=== PATIENT | male | born 1935 | race Caucasian/White ===

== ENCOUNTER 2016-03-05 15:47 | Inpatient (IN) | payer MEDICARE ==
[~2016-03-05] VITALS: Ht 185.4 cm; Wt 90.5 kg
--- NOTE | 2016-03-05 17:15 | NUR ---
Patient referral from [facility] in [place] for increased confusion, aggressive beahavior toward staff, and wandering...patient behaviors have worsen per staff. Arrived via their transportations, ambulated onto unit with his walker. Alert and able to verbalized name and , patient thinks he is at a MD appointment. Calm and cooperative, but refuses to eat dinner. Orientated to unit. Verbal consent and code word obtained per patient son Thom Chambers (POA).
[2016-03-05 18:20] VITALS: BP 149/92
[2016-03-05 19:05] LABS: BASOPHILS 0.3 % (0.0-2.0); EOSINOPHILS 2.3 % (0-7); HEMATOCRIT 40.8 % (42.0-54.0); HEMOGLOBIN 13.5 g/dL (13.5-17.5); IMMATURE GRANULOCYTES 0.2 % (0-5); LYMPHOCYTES 20.6 % (15-50); MCH 30.4 pg (26.0-34.0); MCHC 33.1 g/dL (31.0-37.0); MCV 91.9 fL (80.0-100.0); MEAN PLATELET VOLUME 9.4 fL (7.4-10.4); MONOCYTES 10.3 % (2-11); NEUTROPHILS 66.3 % (40-80); PLATELET COUNT 150 10x3/uL (130-400); RBC 4.44 10x6/uL (4.20-6.10); RDW 12.8 % (11.5-14.5); WBC 6.5 10x3/uL (4.8-10.8)
[2016-03-05 19:31] LABS: ALBUMIN 3.7 g/dL (3.4-5.0); ANION GAP 14.2 mmol/L (8-16); BILIRUBIN - TOTAL 0.52 mg/dL (0.2-1.3); CARBON DIOXIDE 23.9 mmol/L (21.0-32.0); CHOL - HDL RATIO 2.9 ratio (2.3-4.9); CREATININE - SERUM 1.3 mg/dL (0.6-1.3); LDL-HDL RATIO 1.6 ratio (1.5-3.5); POTASSIUM - SERUM 4.1 mmol/L (3.5-5.1); PROTEIN - SERUM 6.3 g/dL (6.4-8.2); THYROID STIMULATING HORMONE 3.78 uIU/mL (0.36-3.74)
[2016-03-05 19:45] LABS: HEMOGLOBIN A1C 6.3 % (4.8-6.0)
[2016-03-05] MEDS ORDERED: VITAMIN B-12500 MC1 PO (19:45)
[2016-03-05] MEDS ORDERED: PLAVIX75 MG PO (19:46)
[2016-03-05] MEDS ORDERED: BAYER CHEWABLE81 MG PO (19:46)
[2016-03-05] MEDS ORDERED: ARICEPT10 MG PO (19:47)
[2016-03-05] MEDS ORDERED: FLOMAX0.4 MG PO (19:48)
[2016-03-05] MEDS ORDERED: ISOSORBIDE MONO30 M1 PO (19:49)
[2016-03-05] MEDS ORDERED: MOBIC7.5 MG PO (19:50)
[2016-03-05] MEDS ORDERED: NAMENDA XR7 MG PO (19:51)
[2016-03-05] MEDS ORDERED: TRAZODONE HCL50 MG PO (19:51)
[2016-03-05] MEDS ORDERED: REMERON15 MG PO (19:52)
[2016-03-05] MEDS ORDERED: ACETAMINOPHEN325 MG PO (19:53)
[2016-03-05] MEDS ORDERED: ATIVAN0.5 MG PO (19:55)
[2016-03-05 20:35] VITALS: BP 135/78
--- NOTE | 2016-03-05 22:57 | NUR ---
RECEIVED IN DAYROOM. SETTING IN CHAIR. RESTLESS. VERY CONFUSED. ORIENTED TO SELF ONLY. REDIRECT AND REORIENT. NO PM MEDS GIVEN AT THIS TIME. IN BEDROOM WITH EYES OPEN AT THIS TIME. RESTLESSNESS AND ANXIETY CONTINUES. CONTINUE PLAN OF CARE
[2016-03-06 04:21] VITALS: BP 135/78; BMI 27.0
--- NOTE | 2016-03-06 07:45 | NUR ---
Did remove patients bandages and assessed areas and rewrapped. Patient does have a stasis ulcer to left anterior ankle area, has crusted area all over feet and legs upto knees. Patient does have a couple scabbed areas to right leg. applied mepilex & kerlix. Patient is not able to provide much information about himself or his health history.
[2016-03-06 08:00] VITALS: BP 127/54
[2016-03-06 14:14] VITALS: Ht 185.4 cm; Wt 90.5 kg
[2016-03-06 20:22] VITALS: BP 109/59
--- NOTE | 2016-03-06 23:45 | NUR ---
RECEIVED IN HALLWAY SITTING IN CHAIR. ORIENTED TO SELF ONLY, VERY CONFUSED AND RESTLESS. CALM AND COOPERATIVE WITH CARE. COMPLIANT WITH TAKING PM MEDS. ASSESSMENT COMPLETED PER FLOW SHEET. CONTINUE POC.
[2016-03-07 06:14] LABS: RAPID PLASMA REAGIN Non Reactive (Non Reactive)
[2016-03-07 08:10] VITALS: BP 115/59
[2016-03-07 09:19] LABS: FOLATE (FOLIC ACID) - SERUM 7.4 ng/mL (>3.0)
--- NOTE | 2016-03-07 12:32 | NUR ---
B) Patient is awake and alert, he is flat in affect. He says he doesn't feel well, but he says "It's just me" He is confused, he doesn't know where he is located and he wanders. He is [place]. It is difficult to communicate at times, unsure if he is able comprehend or if he is not hearing well. Patient ambulates independently with a walker, he is slow in gait as he does have a left edematous leg and he does have bilateral bandages to legs. He says he had cellulitis at one time. Unsure if he is a good historian. I) Provide prescribed meds and redirect as needed. R) Patient is compliant with medication and he has redirected today and has not been exit seeking. P) Continue plan of care.
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
[2016-03-07 19:30] VITALS: BP 132/58
--- NOTE | 2016-03-07 23:59 | NUR ---
b) Recieved ambulating in the day room with a walker, alert and oriented to self, calm and cooperative with staff, I) Administered perscribed medications and redirected as needed, R) Medication compliant, resting now in bed with eyes closed, P) Continue plan of care, continue to monitor.
--- NOTE | 2016-03-08 08:00 | NUR ---
B) Patient is awake and alert, he is oriented to his name only, he is confused, ambulating in hallway, going into other patient rooms and he has to be redirected. He did see industrial maintenance technician go in his room to increase the heat, but patient became frustrated and he wanted to go to his room, had to redirect. I) Provide prescribed meds. R) Patient is compliant with meds. P) Continue plan of care.
[2016-03-08 08:11] VITALS: BP 108/53
--- NOTE | 2016-03-08 11:10 | NUR ---
OUND CARE NURSE HERE TO APPLY NEW FREDDY BOOT BANDAGES ON PATIENT'S BILATERAL LOWER LEGS. PATIENT TOLERATED WELL.
--- NOTE | 2016-03-08 13:10 | NUR ---
WOUND CARE CONSULT: NOTED SEVERAL STASIS ULCERS ON BILATERAL LOWER EXTREMITIES. CURRENT TREATMENT PT RECEIVING AT [facility] WAS UNNA BOOTS APPLIED WEEKLY. UNNA BOOTS APPLIED PER ORDERS. WILL CONTINUE TO MONITOR.
--- NOTE | 2016-03-08 13:43 | NUR ---
Patient getting irritated and he is cursing, trying to elope and when redirected he says "This is Bulls--". Haldol 2 mg po give now.
--- NOTE | 2016-03-08 14:27 | NUR ---
SW MET WITH PT'S CHRISTA- TO DISCUSS RECENT BEHAVIORS AND DISCHARGE PLANNING.
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
--- NOTE | 2016-03-08 16:00 | NUR ---
PATIENT CONTINUES TO BE RESTLESS, ANXIOUS, UNREDIRECTABLE. HALDOL 2MG IM ADMINISTERED WITHOUTH DIFFICULTY PER ORDERS.
[2016-03-08 19:30] VITALS: BP 129/80
--- NOTE | 2016-03-08 21:17 | NUR ---
B) Patient is calmer this pm, staff had to redirect multiple times to get him to go to bed, he kept making circles in the room, saying he is looking for his . Staff was able to assist him to bed. He is confused, oriented to self only. I) Provide prescribed meds and redirect as needed. R) Patient is compliant with meds. P) Continue plan of care.
[2016-03-09 09:46] VITALS: BP 115/65
--- NOTE | 2016-03-09 14:29 | NUR ---
RECEIVED THIS AM SITTING IN CHAIR AT NURSES STATION.ORIENTED TO SELF ONLY.IS AMBULATORY WITH WALKER.CALM AND COOPERATIVE.COMPLIANT WITH MEDS.MEDS CRUSHED AND GIVEN IN APPLESAUCE.WILL CONTINUE WITH PLAN OF CARE,MONITOR FOR CHANGES AND SAFETY.HALDOL IM GIVEN THIS AFTERNOON FOR ANXIETY AND TRYING TO LEAVE.
--- NOTE | 2016-03-09 16:05 | NUR ---
PATIENT PACING AND CHECKING DOORS. BECOMING MORE ANXIOUS AND WILL NOT FOLLOW VERBAL REDIRECTION. QUESTIONING WHAT STAFF TELLS HIM. HALDOL 2MG IM ADMINSITERED PER ORDERS.
--- NOTE | 2016-03-09 18:39 | PN ---
PATIENT:KEYSHAWN BUSTAMANTE MEDICAL RECORD: [id number] LOCATION:[facility] ADMISSION DATE: 03/05/16 PROGRESS NOTE DATE OF SERVICE: 03/08/2016 SUBJECTIVE: No new complaint. OBJECTIVE: The patient continues to wonder about the unit. He has lost and confused much of the time, but generally cooperative. On exam, mood is euthymic, affect is pleasant. Speech is tangential and nonfocused. Content of thought exhibits delusional ideation due to profound sensorium changes. Sensorium remains clouded. The patient is oriented only to person. ASSESSMENT: No change in diagnosis. PLAN: 1. Continue all current medications. 2. Continue supportive therapy. TRANSINT:[id number] Voice Confirmation ID: [id number] DOCUMENT ID: [id number] NIK DRAPER III, MD at 1839 CC: [id number] DICTATION DATE: 03/08/16 1227 DEPUTY JUVENILE OFFICER: 03/08/16 2105 ADM IN [place] [id number] [place] [id number]
[2016-03-09 20:00] VITALS: BP 141/86
--- NOTE | 2016-03-09 22:35 | NUR ---
B) Continues to be nervous, anxious and restless but did not curse or engage in any aggression this shift thus far. Did become slightly irritable waiting in dayroom to be allowed to go back to his room for the night but was directable. Bruises on hands continue to heal. Uses walker when ambulating. Has not been exit seeking this shift. FREDDY boots remain on and intact on lower legs bilaterally, refused to shower tonight despite offer of assistance from staff and having plastic sleeves at the nursing station to cover his FREDDY boots. I) Administer medications as ordered, redirect and reorient PRN. Educate on anger management skills. R) Oriented x 1 to person only, confused, grumpy, and impatient. Compliant with medications, took same crushed in applesauce. P) Continue to monitor per plan of care.
[2016-03-10 07:41] VITALS: BP 132/69
--- NOTE | 2016-03-10 15:23 | NUR ---
ORIENTED TO PERSON ONLY. PT IS EXIT SEEKING AND DIFFICULT TO REDIRECT. PT BECOMES AGITATED WITH REDIRECTION. PT IS RESTLESS AND PACING THE UNIT WITH HIS WALKER. ANXIETY NOTED. MED COMPLIANT. ENCOURAGED PT TO EXPRESS FEELINGS AND EDUCATED ON COPING SKILLS. NO EVIDENCE OF RETAINING EDUCATION OR REDIRECTION. FALL PRECAUTIONS MAINTAINED. CONTINUE TO MONITOR AND CONTINUE WITH PLAN OF CARE.
[2016-03-10 19:30] VITALS: BP 140/83
--- NOTE | 2016-03-10 22:36 | NUR ---
B) Extremely anxious this evening trying to find a way out. Needed prompting to return to dayroom. Nervous and shaky, did not state what was bothering him. Nontalkative, staring taking short steps, unsteady, using walker with standby assist. No anger displayed. I) Administer medications as ordered, redirect and reorient PRN, provide emotional reassurance and encourage to express feelings. R) Oriented to person only, remains AWOL risk, FREDDY boots on, took pills whole tonight with water, last evening took HS medications crushed in applesauce. P) Continue with monitoring per plan of care.
[2016-03-11 07:38] VITALS: BP 106/65
--- NOTE | 2016-03-11 13:16 | PN ---
PATIENT:KEYSHAWN BUSTAMANTE MEDICAL RECORD: [id number] LOCATION:[facility] ADMISSION DATE: 03/05/16 PROGRESS NOTE DATE OF SERVICE: 03/07/2016 SUBJECTIVE: The patient's case was discussed with staff. He has no new complaint. OBJECTIVE: The patient denies intent to harm himself or others. He is quite confused. He does not recognize that he was in a shelter. He also does not remember that he is . ASSESSMENT: No change in diagnoses. PLAN: Current medicines and therapies have been reviewed and will be maintained. The patient has not been aggressive. TRANSINT:[id number] Voice Confirmation ID: [id number] DOCUMENT ID: [id number] FELICIANO SIDDIQUI MD at 1316 CC: [id number] DICTATION DATE: 03/07/16 1446 PROPERTY WORKER: 03/07/16 1717 ADM IN [facility] [address] [place] [address]
--- NOTE | 2016-03-11 16:39 | NUR ---
Oriented to self only, patient is ambulatory with walker, exit seeking was fund going through discarded breakfast trays looking for "Contracts" patient becomes agitated with redirection and argumentive. Refused shower today " if I shower I will not be able to walk again, i'll become weak." Redirect, reorient and refocus to reality as need. Unable to redirect and refocus to reality. Continue with plan of care.
--- NOTE | 2016-03-11 18:30 | NUR ---
bilateral lower extremity unna boot dressing applied per wound care nurse on 03/08/16, dressing clean, dry and intact to be changed weekly.
[2016-03-11 19:58] VITALS: BP 137/72
--- NOTE | 2016-03-11 20:43 | NUR ---
RECEIVED IN DAYROOM. SETTING IN RECLINER WITH PEERS AT HIS SIDE. SOCIALIZING. VERY CONFUSED. CALM AND COOPERATIVE WITH CARE AND ASSESSMENT. NO SIGNS OF AGGRESSION. NOT EXIT SEEKING THIS EVENING. REDIRECT AND REORIENT NEEDED. CONTINUES TO SET QUIETLY IN RECLINER. CONTINUE PLAN OF CARE
[2016-03-12 10:07] VITALS: BP 107/48
--- NOTE | 2016-03-12 10:27 | NUR ---
Nutrition Follow Up: Chart reviewed. Pt is eating 91% on a regular diet. Wt loss of 5# since admit. +BM 03/07/16. Meds noted including Vit B12. No new labs to assess. Pt with excellent po intake at this time. Rec continue current diet. RD following.
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
--- NOTE | 2016-03-12 18:42 | NUR ---
(B)RECEIVED PATIENT WALKING ON THE UNIT WITH HIS WALKER. ORIENTED TO SELF ONLY AEB "I'M HERE." POOR INSIGHT INTO THE REASON FOR HOSPITALIZATION RELATING "I'M HERE TO DO SOMETHING FOR SOMEBODY. HELP OUT DON'T KNOW ALL ABOUT IT." LABILE ONE MINUTE CAN BE CALM AND COOPERATIVE AND THE NEXT MINUTE WILL BE CURSING, AGGRESSIVE AND DELUSIONAL. (I)ADMINISTER MEDS AND MONITOR COMPLIANCE. REORIENT NEEDED. (R)MED COMPLIANT. POOR REORIENTATION DUE TO IMPAIRED ABILITY TO COMREHEND, PROCESS AND RETAIN INFORMATION. (P)CONTINUE POC AND MAINTAIN FALL PRECAUTIONS.
[2016-03-12 19:39] VITALS: BP 122/71
--- NOTE | 2016-03-12 21:08 | NUR ---
B) Patient is very confused, he keeps wandering into others rooms. He ambulates with a walker. He is polite, but he asks the same question over and over. I) Provide prescribed meds and redirect as needed. R) Patient is compliant with meds. He has not shown aggression tonight. P) Continue plan of care.
[2016-03-13 07:40] VITALS: BP 117/59
--- NOTE | 2016-03-13 13:17 | NUR ---
RECEIVED THIS AM AMB IN HALLWAY WITH WALKER.ORIENTED TO SELF ONLY.EXIT SEEKING,LOOKING FOR .ATTEMPTS TO REORIENT UNSUCCESSFUL.WILL CONTINUE WITH PLAN OF CARE ,MONITOR FOR CHANGES AND SAFETY.
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
--- NOTE | 2016-03-13 17:36 | PN ---
PATIENT:KEYSHAWN BUSTAMANTE MEDICAL RECORD: [id number] LOCATION:[facility] ADMISSION DATE: 03/05/16 PROGRESS NOTE DATE OF SERVICE: 03/12/2016 SUBJECTIVE: The patient's case was discussed with staff. He has no new complaint. OBJECTIVE: The patient denies intent to harm himself or others. He is severely impaired cognitively. He has been eating well and sleeping reasonably well, but continues to have difficulty with exit seeking and sundowning behavior. Dr. Cathy Bowen is going to him today. I anticipate he is going to score in the severe range, probably with a score on the SLUMS test of 10 or 12. TRANSINT:[id number] Voice Confirmation ID: [id number] DOCUMENT ID: [id number] FELICIANO SIDDIQUI MD at 1736 CC: [id number] DICTATION DATE: 03/12/16 1324 SALES DRIVER: 03/12/16 1841 ADM IN [facility] [address] [place] [address]
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
--- NOTE | 2016-03-13 21:24 | NUR ---
RECEIVED INDAYROOM. SETTING IN WHEELCHAIR. VERY CONFUSED. CALM AND COOPERATIVE WITH CARE AND ASSESSMENT. NO SIGNS OF AGGRESSION. ASSISTED TO BED. REDIRECT AND REORIENT NEEDED. RESTING IN BED WITH EYES CLOSED AT THIS TIME. CONTINUE PLAN OF CARE
[2016-03-14 08:23] VITALS: BP 110/67
--- NOTE | 2016-03-14 13:20 | PN ---
PATIENT:KEYSHAWN BUSTAMANTE MEDICAL RECORD: [id number] LOCATION:[facility] ADMISSION DATE: 03/05/16 PROGRESS NOTE DATE OF SERVICE: 03/13/2016 SUBJECTIVE: The patient's case was discussed with staff. He has no new complaint. OBJECTIVE: The patient is in good behavioral control with poor insight about his condition. He tolerates his medicines well. ASSESSMENT: No change in diagnoses. PLAN: Current medicines and therapies have been reviewed and will be maintained. Long-term prognosis is guarded. He does become quite confused in the evening, it is only dinner time right now, but if he does have some agitation, I do plan to increase the medication to relieve some of that agitation. TRANSINT:[id number] Voice Confirmation ID: [id number] DOCUMENT ID: [id number] FELICIANO SIDDIQUI MD at 1320 CC: [id number] DICTATION DATE: 03/13/16 1749 PROBATE LAWYER: 03/13/16 1908 ADM IN [facility] [address] [place] [address]
--- NOTE | 2016-03-14 15:04 | NUR ---
B) Patient is confused, he knows his name only, he is not aware of where he is located. He ambulates with a walker independently. He is c/o his groinal area itching and burning, he does have nystatin powder and did apply to area, will let MD be aware also. I) Provide prescribed meds and redirect as needed. R) Patient is compliant with meds and unit milieu. P) Continue plan of care.
--- NOTE | 2016-03-14 15:32 | NUR ---
B) Patient is awake and alert, he knows his name, but he is confused. he does not know where he is and he does not know why he is here. He ambulates with a walker. I) Provide prescribed meds. R) Patient is compliant with meds and unit milieu. P) Continue plan of care.
--- NOTE | 2016-03-14 16:13 | NUR ---
Family here and requests that patient be tested for a UTI, they state he gets mean when he has one, did let Michelle Solis know and Dr. Sarabia.
[2016-03-14 17:29] LABS: APPEARANCE CLEAR (CLEAR); BACTERIA FEW /hpf (NONE SEEN); BILIRUBIN NEGATIVE (NEGATIVE); COLOR YELLOW (YELLOW); EPITHELIAL CELLS 0-5 /hpf (0-5); GLUCOSE NEGATIVE (NEGATIVE); KETONE NEGATIVE (NEGATIVE); LEUKOCYTE ESTERASE NEGATIVE (NEGATIVE); MUCUS <1+ /lpf (NONE SEEN); NITRITE NEGATIVE (NEGATIVE); PROTEIN NEGATIVE (NEGATIVE); RED CELLS - URINE 0-5 /hpf (0-5); SPECIFIC GRAVITY 1.025 (1.005-1.020); UROBILINOGEN NORMAL (NORMAL); WHITE CELLS - URINE OCC /hpf (0-5)
[2016-03-14 19:30] VITALS: BP 140/75
--- NOTE | 2016-03-15 01:30 | NUR ---
B) Continues confused, anxious, restless, and wandering. Ambulates with walker. Focused on penis and testicles. States it is "sore down there." Scrotum, and groins reddened with two small blisters on right side of scrotum, Nystatin powder followed by Lotrimin cream applied over entire area. FREDDY dressings remain over both lower legs with scant villarreal colored oozing noted coming through outer layer of [place] in both dennis areas. I) Administer medications as ordered, redirect and reorient PRN. R) Oriented to person, compliant with medications, states painful soreness in perineum area somewhat relieved after powder and cream applied. P) Continue to monitor per plan of care.
[2016-03-15 08:12] VITALS: BP 134/63
--- NOTE | 2016-03-15 08:31 | NUR ---
Assessed patient's scrotum and penis, scrotum very red and inflamed from possibly scratching, right testicle has a blister, apllied topical med as ordered called Dr. Sarabia and she ordered valtrex for 7 days.
--- NOTE | 2016-03-15 09:39 | NUR ---
LATE ENTRY FROM 03/14/16 SW SPOKE WITH PT'S RAMONWILLIAM, ABOUT PT'S DISCHARGE PLANNING. MARIYA HANDED OUT RESOURCES FOR ALTERNATIVE NH PLACEMENTS. WILLIAM STATED SHE WOULD START LOOKING INTO FACILITIES TOMORROW.
--- NOTE | 2016-03-15 13:51 | NUR ---
WOUND CARE: REMOVED BILATERAL UNNA BOOTS. APPLIED NEW ONES. PT TOLERATED WELL. LEGS HAVE IMPROVED.
[2016-03-15 19:24] VITALS: BP 126/52
--- NOTE | 2016-03-15 23:34 | NUR ---
B) Recieved sitting in the day room , alert and oriented to self, social with other patients, anxious and restlss at times, I) administered perscribed medication, PRN Haldol 2 mg IM given at 1900 for anxiety, R) Medication compliant, calm and cooperative now, restless at times, P) Continue plan of care,
[2016-03-16 08:00] VITALS: BP 151/80
--- NOTE | 2016-03-16 12:27 | NUR ---
RECEIVED THIS AM AMB IN HALLWAY WITH WALKER.IS ORIENTED TO SELF.CALM AND COOPERATIVE AT PRESENT BUT CAN BECOME VERY AGGITATED AND DETERMINED AT TIMES.WILL CONTINUE WITH PLAN OF CARE,MONITOR FOR CHANGES AND SAFETY.
--- NOTE | 2016-03-16 12:54 | PN ---
PATIENT:KEYSHAWN BUSTAMANTE MEDICAL RECORD: [id number] LOCATION:[facility] ADMISSION DATE: 03/05/16 PROGRESS NOTE DATE OF SERVICE: 03/15/2016 SUBJECTIVE: The patient's case was discussed with staff. He has no new complaint. OBJECTIVE: The patient is in good behavioral control with limited insight about his condition. He tolerates his medicines well. He is very confused. He will be monitored for clinical changes. I plan to maintain these medications since he actually is a little less agitated than yesterday. TRANSINT:[id number] Voice Confirmation ID: [id number] DOCUMENT ID: [id number] FELICIANO SIDDIQUI MD at 1254 CC: [id number] DICTATION DATE: 03/15/16 1231 ORDER FILLER: 03/15/16 1730 ADM IN [place] [id number] [place] [address]
--- NOTE | 2016-03-16 12:55 | PN ---
PATIENT:KEYSHAWN BUSTAMANTE MEDICAL RECORD: [id number] LOCATION:[facility] ADMISSION DATE: 03/05/16 PROGRESS NOTE DATE OF SERVICE: 03/14/2016 SUBJECTIVE: The patient's case was discussed with staff. He has no new complaint. OBJECTIVE: The patient is in good behavioral control, but quite impaired. Yesterday afternoon, he did require additional medication because he was confused and agitated. His long-term prognosis is guarded. The treatment goals are to reduce his level of agitation, so that he can be reasonably cared for in a long-term care setting. TRANSINT:[id number] Voice Confirmation ID: [id number] DOCUMENT ID: [id number] FELICIANO SIDDIQUI MD at 1255 CC: [id number] DICTATION DATE: 03/14/16 1329 TILE LAYER: 03/14/16 1558 ADM IN [place] [id number] [place] [id number]
--- NOTE | 2016-03-16 14:00 | NUR ---
Patient's sister in law asked "When will he be discharged" She also asked "How is he doing today" Explained that yesterday pm he had to have an injection for aggression and today he is slow moving, but he is calmer. Also let her know he does not have a UTI. She was pleased to know that answer.
[2016-03-16 19:30] VITALS: BP 162/78
--- NOTE | 2016-03-17 02:44 | NUR ---
B) Recieved sitting in the day room, alert and oriented to self only, calm and cooperative, wanders at times, very confused, I) Administered perscribed medication, redirected as needed, R) Medication compliant, resting quietly now, P) Continue plan of care, continue to monitor.
[2016-03-17 08:38] VITALS: BP 98/53
--- NOTE | 2016-03-17 11:47 | NUR ---
PT ORIENTED TO PERSON ONLY. REDIRECTED NEEDED BUT NO EVIDENCE OF RETAINING. PT MADE SEXUALLY INAPPROPRIATE COMMENTS TO MED NURSE. EDUCATED ON APPROPRIATE BEHAVIOR BUT PT DID NOT UNDERSTAND. NO AGGRESSION NOTED. PT CONTINUES TO ATTEMPT TO OPEN DOORS BUT NOT BECOMING AGITATED WHEN REDIRECTED. MED COMPLIANT. FALL PRECAUTIONS MAINTAINED. WILL CONTINUE TO MONITOR AND CONTINUE WITH PLAN OF CARE.
[2016-03-17 19:30] VITALS: BP 106/70
--- NOTE | 2016-03-17 20:41 | NUR ---
RECEIVED IN DAYROOM. SETTING IN CHAIR WITH PEERS AT HIS SIDE. NOT SOCIALIZING WITH PEERS. CALM AND COOPERATIVE WITH CARE AND ASSESSMENT. ORIENTED TO SELF ONLY. NO SIGNS OF AGGRESSION. NOT EXIT SEEKING. REDIRECT AND REORIENT . CONTINUES TO SET QUIETLY IN CHAIR. CONTINUE PLAN OF CARE
[2016-03-18 11:20] VITALS: BP 114/61
--- NOTE | 2016-03-18 18:49 | NUR ---
Alert and oriented to self only, has no insight to reason for hospitalization. Reorient and redirect as need. unable to reorient due to inability to retain information, no evidence of reorientation. Continues to exit seek to doors, redirectable with no aggression. Compliant with medications. Fall precautions maintained. Continue to monitor and continue with plan of care.
--- NOTE | 2016-03-18 20:12 | NUR ---
RECEIVED IN DAYROOM. SETTING IN RECLINER WITH STAFF AND PEERS AT HIS SIDE. SOCIALIZING WITH PEERS AT TIMES. VERY CONFUSED. NO SIGNS OF AGGRESSION. NOT EXIT SEEKING AT THIS TIME. REDIRECT AND REORIENT NEEDED. CONTINUES TO REST QUIETLY IN RECLINER. CONTINUE PLAN OF CARE
[2016-03-18 20:37] VITALS: BP 124/71
--- NOTE | 2016-03-19 09:37 | NUR ---
Nutrition Follow Up: Chart reviewed. Pt is eating 78% meal avg on a Regular diet. Noted per MD note pt with L ankle stasis ulcer and scrotum is red with dried blisters. +BM 03/18/16. No new labs to assess. Meds noted. Rec continue current diet. Will send Ensure with meals to increase protein/calorie intake to promote wound healing. RD following.
[2016-03-19 14:08] VITALS: BP 183/57
--- NOTE | 2016-03-19 14:57 | PN ---
PATIENT:KEYSHAWN BUSTAMANTE MEDICAL RECORD: [id number] LOCATION:[facility] ADMISSION DATE: 03/05/16 PROGRESS NOTE DATE OF SERVICE: 03/18/2016 SUBJECTIVE: The patient's case was discussed with staff. He has no new complaint. OBJECTIVE: The patient denies intent to harm himself or others. He generally tolerates his medicines well. He has been much calmer. ASSESSMENT: No change in diagnoses. PLAN: Current medicines and therapies have been reviewed and will be maintained. Long-term prognosis is guarded. TRANSINT:[id number] Voice Confirmation ID: [id number] DOCUMENT ID: [id number] FELICIANO SIDDIQUI MD at 1457 CC: [id number] DICTATION DATE: 03/18/16 1349 CPO: 03/18/16 1442 ADM IN [address] [id number] [place] [address]
--- NOTE | 2016-03-19 15:55 | NUR ---
RECEIVED THIS AM SAUL[facility] IN [facility].ORIENTED TO SELF ONLY.COMPLIANT WITH MEDS.EXIT SEEKING.WILL CONTINUE WITH PLAN OF CARE.MONITOR FOR CHANGES AND SAFETY.NO INAPPROPRIATE SEXUAL ADVANCES OBSERVED TODAY.
[2016-03-19 19:28] VITALS: BP 128/74
--- NOTE | 2016-03-20 04:25 | NUR ---
PATIENT RECIEVED IN DAYROOM. REORIENTED TO SELF ONLY. CONFUSED AND EXIT SEEKING, PATIENT WAS REDIRECTED. CALM AND COOPERATIVE WITH MEDICATION. CONTINUE PLAN OF CARE.
[2016-03-20 07:57] VITALS: BP 115/65
--- NOTE | 2016-03-20 12:46 | PN ---
PATIENT:KEYSHAWN BUSTAMANTE MEDICAL RECORD: [id number] LOCATION:[facility] ADMISSION DATE: 03/05/16 PROGRESS NOTE DATE OF SERVICE: 03/19/2016 SUBJECTIVE: The patient's case was discussed with staff. He has no new complaint. OBJECTIVE: The patient is in good behavioral control with limited insight about his condition. He is severely impaired cognitively. ASSESSMENT: No change in diagnoses. PLAN: I anticipate the patient can be transitioned out of the hospital soon. His long-term prognosis is guarded. TRANSINT:[id number] Voice Confirmation ID: [id number] DOCUMENT ID: [id number] FELICIANO SIDDIQUI MD at 1246 CC: [id number] DICTATION DATE: 03/19/16 1524 ENVIRONMENTAL AID: 03/19/16 1557 ADM IN [address] [place] [address]
--- NOTE | 2016-03-20 14:13 | NUR ---
B.) Alert and oriented to self only, calm and cooperative with assessment. I.) Administer medications and monitor compliance. Redirect and reorient as need. Encourage group participation and monitor safety. R.) Compliant with medications, no aggression, redirect easily. No evidence of reorientation. Safety maintained. P.) Continue plan of care.
[2016-03-20 19:27] VITALS: BP 114/65
--- NOTE | 2016-03-21 00:34 | NUR ---
B) Recieved sitting in the day room, alert and oriented to self, social with peers, calm and cooperative with staff, I) Administered perscribed medications, redirected and oriented as needed, R) Medication compliant, wanders at times P) continue plan of care, continue to monitor.
[2016-03-21 07:50] VITALS: BP 116/58
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
--- NOTE | 2016-03-21 14:53 | PN ---
PATIENT:KEYSHAWN BUSTAMANTE MEDICAL RECORD: [id number] LOCATION:[facility] ADMISSION DATE: 03/05/16 PROGRESS NOTE DATE OF SERVICE: 03/20/2016 SUBJECTIVE: The patient's case was discussed with staff. He has no new complaint. OBJECTIVE: The patient is in good behavioral control with limited insight about his condition. He tolerates his medicines well. ASSESSMENT: No change in diagnoses. PLAN: Current medicines and therapies have been reviewed and will be maintained. Long-term prognosis is guarded. TRANSINT:[id number] Voice Confirmation ID: [id number] DOCUMENT ID: [id number] FELICIANO SIDDIQUI MD at 1453 CC: [id number] DICTATION DATE: 03/20/16 1307 THREAD WINDER: 03/20/16 1451 ADM IN [id number] [place] [address]
[2016-03-21 22:07] VITALS: BP 118/57
--- NOTE | 2016-03-22 03:00 | NUR ---
B) recieved sitting in the day room, alert and oriented to self, very confused, very neat and tidy, poor short term memory, not able to process information or retain information, I) Administered perscribed medications, redirected and oriented as needed, R) Medication compliant, friendly and social at times with staff, P) Continue plan of care, continue to monitor.
[2016-03-22 08:55] VITALS: BP 111/56
--- NOTE | 2016-03-22 14:03 | NUR ---
(B)RECEIVED PATIENT SITTING IN A CHAIR AT THE NURSES STATION. ORIENTED TO SELF ONLY. POOR INSIGHT INTO THE REASON FOR HOSPITALIZATION. AMBULATES ON UNIT WITH ASSIST OF A WALKER. CALM AND COOPERATIVE. (I)ADMINISTER MEDS AND MONITOR COMPLIANCE. REORIENT NEEDED. (R)MED COMPLIANT. POOR REORIENTATION DUE TO IMPAIRED ABILITY TO COMPREHEND, PROCESS AND MAINTAIN FALL PECAUTIONS. COOPERATIVE WITH UNIT MILEU. (P)CONTINUE POC AND MAINTIAN FALL PRECAUTIONS.
--- NOTE | 2016-03-22 14:49 | NUR ---
WOUND CARE; REMOVED BILATERAL UNNA BOOTS AND APPLIED NEW. PT CONTINUES TO HAVE SEVERAL STASIS ULCERS ON BILATERAL LOWER EXTREMITIES BUT THEY ARE IMPROVING. WOUND CARE WILL CONTINUE MONITORING.
--- NOTE | 2016-03-22 15:14 | NUR ---
LATE ENTRY FROM 03/21 SW MET WITH PT'S WILLIAM NAVARRO, TO DISCUSS NH PLACEMENT AND DISCHARGE PLANNING. WILLIAM VERBALIZED UNDERSTANDING.
[2016-03-22 19:30] VITALS: BP 130/63
--- NOTE | 2016-03-23 00:38 | NUR ---
Patient pleasant, neat in appearance, cooperative with medication. Calm, not exit-seeking. Abulating with walker without assistance. Not oriented to time, place or situation. Continue to monitor, continue plan of care.
[2016-03-23 09:03] VITALS: BP 106/63
--- NOTE | 2016-03-23 15:32 | NUR ---
RECEIVED THIS AM SITTING IN CHAIR IN HALLWAY AT NURSES STATION.IS ORIENTED TO SELF ONLY.EXIT SEEKING.IS CALM AND COOPERATIVE WITH STAFF.COMPLIANT WITH MEDS.AMB PER SELF WITH WALKER.WILL CONTINUE WITH PLAN OF CARE,MONITOR FOR CHANGES AND SAFETY.
--- NOTE | 2016-03-23 16:54 | NUR ---
Patient up socializing with all visitors during visitation, stood at door and greeted each visitor to unit, patient did not exit seek as door was opened and people entered. Very pleasant and social today.
[2016-03-23 19:30] VITALS: BP 129/67
--- NOTE | 2016-03-23 21:54 | NUR ---
B) Recieved sitting in the day room, alert and oriented to self, ambulates with walker, wanders at times, calm and cooperative, confused, I) Administered perscribed medications, redireted as needed, R) Medication compliant, social with staff, friendly and quiet, P) Continue plan of care, continue to monitor.
--- NOTE | 2016-03-24 07:54 | PN ---
PATIENT:KEYSHAWN BUSTAMANTE MEDICAL RECORD: [id number] LOCATION:[facility] ADMISSION DATE: 03/05/16 PROGRESS NOTE DATE OF SERVICE: 03/22/2016 SUBJECTIVE: No new complaint noted. OBJECTIVE: The patient has been tolerating medications well. He is cooperative with staff. On exam, mood is euthymic. Affect is bland. Speech is rather terse. Content of thought focuses only on somatic concerns. Sensorium is unchanged. ASSESSMENT: No change in diagnoses. PLAN: 1. Maintain current medications. 2. Continue supportive therapy. TRANSINT:[id number] Voice Confirmation ID: [id number] DOCUMENT ID: [id number] NIK DRAPER III, MD at 0754 CC: [id number] DICTATION DATE: 03/22/16 1052 PIN BALL MACHINE MECHANIC: 03/22/16 1318 ADM IN [facility] [address] [place] [address]
[2016-03-24 10:07] VITALS: BP 111/55
--- NOTE | 2016-03-24 15:19 | NUR ---
ORIENTED TO SELF ONLY. WALKS WITH A WALKER. AMBULATES FREQUENTLY. REDIRECTED NEEDED. EXIST SEEKING AT TIMES BUT EASILY REDIRECTED WITHOUT AGGRESSION. NO AGGRESSION NOTED. MED COMPLIANT. FALL PRECAUTIONS MAINTAINED. WILL CONTINUE WITH PLAN OF CARE.
[2016-03-24 19:30] VITALS: BP 110/59
--- NOTE | 2016-03-24 20:29 | NUR ---
RECEIVED IN DAYROO. SETTING IN RECLINER AT TIMES. WALKS ABOUT DAYROOM AND DINING ROOM USING WALKER/ CALM AND COOPERATIVE WITH CARE AND ASSESSMENT. NO SIGNS OF AGGRESSION. NO SIGNS OF HALLUCINATIONS. REDIRECT AND REORIENT NEEDED. CONTINUES TO WALK ABOUT USING WALKER. CONTINUE PLAN OF CARE
[2016-03-25 10:31] VITALS: BP 125/60
--- NOTE | 2016-03-25 12:01 | NUR ---
SW SPOKE WITH PT'S RAMONWILLIAM, ABOUT DISCHARGE PLANNING TODAY TO [facility]. SHE EXPRESSED GRATITUDE FOR SERVICES AND STATED SHE IS LOOKING FORWARD TO HIM BEING PLACED IN HIS NEW RESIDENCY.
[2016-03-25] MEDS ORDERED: ARICEPT10 MG PO (13:27)
[2016-03-25] MEDS ORDERED: DIFLUCAN100 MG PO (13:27)
[2016-03-25] MEDS ORDERED: NAMENDA5 MG PO (13:28)
[2016-03-25] MEDS ORDERED: NYSTATIN1 PWD TOPICAL (13:29)
[2016-03-25] MEDS ORDERED: CLOTRIM ANTIFUN15 GM TOPICAL (13:29)
[2016-03-25] MEDS ORDERED: GEODON20 MG PO (13:29)
[2016-03-25] MEDS ORDERED: VITAMIN D5000 UNIT PO (13:29)
--- NOTE | 2016-03-25 13:31 | PN ---
PATIENT:KEYSHAWN BUSTAMANTE MEDICAL RECORD: [id number] LOCATION:[facility] ADMISSION DATE: 03/05/16 PROGRESS NOTE DATE OF SERVICE: 03/21/2016 SUBJECTIVE: The patient's case was discussed with staff. He has no new complaint. OBJECTIVE: The patient is severely impaired cognitively, but overall, he is significantly better with regard to his behaviors. He is calmer. He is less agitated, particularly in the afternoon and he does not appear to be sedated. This could be related to just settling in to a new environment or the medications I am prescribing or more likely a combination of the two. He will be maintained on these medications and I think that he is approaching a time when he can be transitioned out of the hospital. TRANSINT:[id number] Voice Confirmation ID: [id number] DOCUMENT ID: [id number] FELICIANO SIDDIQUI MD at 1331 CC: [id number] DICTATION DATE: 03/21/16 145 TRAFFIC CONTROL OPERATOR: 03/21/16 1543 ADM IN [id number] [place] [address]
--- NOTE | 2016-03-25 15:50 | NUR ---
RECEIVED THIS AM SITTING IN CHAIR IN HALLWAY AT NURSES STATION.AMBULATORY WITH WALKER WITH STEADY GAIT.IS ORIENTED TO SELF ONLY.CALM AND COOPERATIVE.EASILY REDIRECTED.NO AGGRESSION OBSERVED.WILL CONTINUE WITH PLAN OF CARE,MONITOR FOR CHANGES AND SAFETY.
--- NOTE | 2016-03-25 16:12 | NUR ---
Received this am alert and oriented to self, states " I came to this place to looking for somebody, I traveled a ways to see them." patient has no insight to where he is and why. Calm and cooperative with assessment this am. I.) Administer medications and monitor compliance. Redirect and reorient as need. Encourage group participation. Monitor safety. R.) Compliant with medications, no aggression. No eveidence of reorientation, paces around with walker, social with others. Pleasant and cooperative with unit milieu. P.) Continue plan for discharge today.
--- NOTE | 2016-03-25 16:25 | NUR ---
Patient discharged to [facility] via their transportation van, patient cooperative, ambulated to van using his personal walker with staff. All belonging sent with patient. Family aware of discharge.
--- NOTE | 2016-03-26 13:44 | PN ---
PATIENT:KEYSHAWN BUSTAMANTE MEDICAL RECORD: [id number] LOCATION:[facility] ADMISSION DATE: 03/05/16 PROGRESS NOTE DATE OF SERVICE: 03/25/2016 SUBJECTIVE: The patient's case was discussed with staff. He has no new complaint. OBJECTIVE: The patient denies intent to harm himself or others. He is quite impaired cognitively. ASSESSMENT: No change in diagnoses. PLAN: Current medicines have been reviewed and will be maintained. Long-term prognosis is guarded. TRANSINT:[id number] Voice Confirmation ID: [id number] DOCUMENT ID: [id number] FELICIANO SIDDIQUI MD at 1344 CC: [id number] DICTATION DATE: 03/25/16 1456 TRACK INSPECTOR: 03/25/16 2248 DIS IN 03/25/16 [facility] [address] [place] [address]
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
== END 2016-03-25 16:20 | DRG 57 ==
LOC: D.PSYCH 15:47 → EDBD 17:23 → D.PSYCH 03-25 16:20
PROVIDERS: Family Medicine; ADMIT Psychiatry & Neurology Psychiatry
DX: G30.1 Alzheimer's disease with late onset (principal); F02.81 Dementia in other diseases classified elsewhere, unspecified severity, with behavioral disturbance; B37.89 Other sites of candidiasis; I25.10 Atherosclerotic heart disease of native coronary artery without angina pectoris; I11.0 Hypertensive heart disease with heart failure; I50.9 Heart failure, unspecified; N40.0 Benign prostatic hyperplasia without lower urinary tract symptoms; K21.9 Gastro-esophageal reflux disease without esophagitis; E53.8 Deficiency of other specified B group vitamins; E55.9 Vitamin D deficiency, unspecified; A60.02 Herpesviral infection of other male genital organs; I87.2 Venous insufficiency (chronic) (peripheral)